=== PATIENT | male | born 1985 | race Caucasian/White ===

== ENCOUNTER → 2021-11-26 11:41 | Outpatient (CLI) | payer OTHER, SELFPAY ==
[2021-11-26 13:07] LABS: Influenza A - CEPHEID Flu A NEGATIVE (NEGATIVE); Influenza B - CEPHEID Flu B NEGATIVE (NEGATIVE)
[2021-11-26 13:15] LABS: COVID-19 CEPHEID PCR (VTM/NP) Negative (Negative)
== END ==
PROVIDERS: Visit Provider Physician Assistant
DX: J02.9 Acute pharyngitis, unspecified (principal); J31.2 Chronic pharyngitis
CPT/HCPCS: 0240U; 87070